=== PATIENT | male | born 1990 | race Caucasian/White ===

== ENCOUNTER 2023-09-30 12:16 | Day surgery (SDC) | payer OTHER ==
[2023-09-30] MEDS ORDERED: DIPRIVAN 200 MG/20 ML IV ONE ×2 (14:59→15:08)
[2023-09-30] MEDS ORDERED: Lactated Ringers 1,000 ML IV ONE (15:31)
--- NOTE | 2023-09-30 16:51 | XRAY ---
20 seconds of fluoroscopy was used in surgery for a bilateral L4-S1 MBB.
--- NOTE | 2023-09-30 16:55 | XRAY ---
Indication: Bilateral L4-S1 MBB. Intraoperative fluoroscopy provided for 20 seconds. Single digital spot image submitted for interpretation demonstrates posterior needle tips projecting over the expected left and right L4-S1 nerve roots. Correlate with intraoperative findings/report.
== END 2023-09-30 15:30 | disposition home or self-care (01) ==
LOC: SDC-PAIN 12:16
PROVIDERS: ATTEND Psychiatry & Neurology Pain Medicine
DX: M47.816 Spondylosis without myelopathy or radiculopathy, lumbar region (principal)
CPT/HCPCS: 64493; 64494; 72020; 77002; J2704

== ENCOUNTER 2023-11-04 11:55 | Day surgery (SDC) | payer OTHER ==
[2023-11-04] MEDS ORDERED: BUPIVACAINE 0.5% VIAL IJ ONE (11:56)
[2023-11-04] MEDS ORDERED: LIDOCAINE HCL 1% 50 MG/5 ML VL PF IJ ONE (11:56)
[2023-11-04] MEDS ORDERED: Depo-Medrol 40 MG/ML IM ONE (11:56)
[2023-11-04] MEDS ORDERED: DIPRIVAN 200 MG/20 ML IV ONE (13:21)
[2023-11-04] MEDS ORDERED: Lactated Ringers 1,000 ML IV ONE (13:59)
--- NOTE | 2023-11-04 14:47 | XRAY ---
Indication: Left L4-S1 RFA. Intraoperative fluoroscopy was provided for 13 seconds. 4 digital spot image submitted for interpretation demonstrates posterior needle tips projecting over the expected left L4-S1 nerve roots. Correlate with intraoperative findings/report.
--- NOTE | 2023-11-04 15:14 | XRAY ---
13 seconds of fluoroscopy was used in surgery for a left L4-S1 RFA.
== END 2023-11-04 13:53 | disposition home or self-care (01) ==
LOC: SDC-PAIN 11:55
PROVIDERS: ATTEND Psychiatry & Neurology Pain Medicine
DX: M47.817 Spondylosis without myelopathy or radiculopathy, lumbosacral region (principal)
CPT/HCPCS: 64635; 64636; 72100; 77002; J2001; J2704

== ENCOUNTER 2023-11-11 11:01 | Day surgery (SDC) | payer OTHER ==
[2023-11-11] MEDS ORDERED: Depo-Medrol 40 MG/ML IM ONE (11:02)
[2023-11-11] MEDS ORDERED: LIDOCAINE HCL 1% 50 MG/5 ML VL PF IJ ONE (11:02)
[2023-11-11] MEDS ORDERED: BUPIVACAINE 0.5% VIAL IJ ONE (11:02)
[2023-11-11] MEDS ORDERED: DIPRIVAN 200 MG/20 ML IV ONE (12:46)
[2023-11-11] MEDS ORDERED: Lactated Ringers 1,000 ML IV ONE (13:14)
--- NOTE | 2023-11-11 14:11 | XRAY ---
Indication: Right L4-S1 RFA. Intraoperative fluoroscopy provided for 40 seconds. 5 digital spot image submitted for interpretation demonstrates posterior needle tips projecting over the expected right L4-S1 nerve roots. Correlate with intraoperative findings/report.
--- NOTE | 2023-11-11 20:10 | XRAY ---
40 seconds of fluoroscopy was used in surgery for a right L4-S1 RFA.
== END 2023-11-11 13:25 ==
LOC: SDC-PAIN 11:01
PROVIDERS: ATTEND Psychiatry & Neurology Pain Medicine
DX: M47.816 Spondylosis without myelopathy or radiculopathy, lumbar region (principal)
CPT/HCPCS: 64635; 64636; 72100; 77002; J2001; J2704

== ENCOUNTER 2024-05-04 12:37 | Day surgery (SDC) | payer OTHER ==
[2024-05-04] MEDS ORDERED: BUPIVACAINE 0.5% VIAL IJ ONE (12:38)
[2024-05-04] MEDS ORDERED: Depo-Medrol 40 MG/ML IM ONE (12:38)
[2024-05-04] MEDS ORDERED: propofoL IV ONE (14:59)
--- NOTE | 2024-05-04 17:07 | XRAY ---
Indication: Right shoulder and subacromial bursa injection. Intraoperative fluoroscopy provided for 14 seconds. 2 digital spot image submitted for interpretation demonstrates needle tip projecting over right glenohumeral joint superiorly. Second needle tip subacromial. Small amount of contrast injected for all needle tip placement. Correlate with intraoperative findings/report.
--- NOTE | 2024-05-04 17:09 | XRAY ---
14 seconds of fluoroscopy was used in surgery for a right intra-articular shoulder and subacromial bursa injection.
== END 2024-05-04 15:27 | disposition home or self-care (01) ==
LOC: SDC-PAIN 12:37
PROVIDERS: ATTEND Psychiatry & Neurology Pain Medicine
DX: M19.011 Primary osteoarthritis, right shoulder (principal); M75.51 Bursitis of right shoulder
CPT/HCPCS: 20610; 73030; 77002; J2704; Q9966